=== PATIENT | male | born 1980 | race Two or more races ===

== ENCOUNTER 2018-07-27 10:22 | Emergency (ER) | payer SELFPAY ==
[~2018-07-27] VITALS: Ht 167.6 cm; Wt 67.1 kg
[2018-07-27 10:32] VITALS: Ht 167.6 cm; Wt 67.1 kg
[2018-07-27 11:36] VITALS: BP 152/85
== END 2018-07-27 11:33 | disposition home or self-care (01) ==
LOC: ED 10:22
DX: S00.03XA Contusion of scalp, initial encounter (principal); W22.8XXA Striking against or struck by other objects, initial encounter; Y93.89 Activity, other specified; Y92.89 Other specified places as the place of occurrence of the external cause; Y99.8 Other external cause status